=== PATIENT | female | born 1940 | race American Indian/Alaskan Native ===

== ENCOUNTER 2017-04-21 10:13 | Emergency (ER) | payer MEDICARE, OTHER ==
[2017-04-21 11:13] VITALS: BP 148/74
--- NOTE | 2017-04-21 13:00 | Emergency Department Report ---
HPI - General Chief Complaint: Dental/Oral Time Seen by Provider: 04/21/17 12:55 - HPI HPI: There is pleasant 77-year-old female presents with some bleeding. Patient wears dentures. She uses FixoDent to adhere dentures to her gums. No previous history of bleeding or bruising. She takes aspirin daily. She denies lightheadedness. She denies pain. She denies lightheadedness. She denies bruising or bleeding otherwise. Denies headache. Denies chest pain. 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 - Social History Smoking Status: Never Smoker Substance Use Type: None ED Review of Systems ROS: Stated complaint: SPITTING BLOOD Other details as noted in HPI Comment: All other systems reviewed and negative Constitutional: denies: chills, fever, malaise Respiratory: denies: orthopnea Cardiovascular: denies: palpitations Physical Exam - Physical Exam Vital Signs: Vital Signs 04/21/17 11:11 Temperature 98.3 F Pulse Rate 70 Respiratory 18 Rate Blood Pressure 148/74 O2 Sat by Pulse 98 Oximetry Physical Exam: General: Well-appearing, no acute distress HEENT: Normocephalic atraumatic pupils equal round and reactive to light anicteric sclera Nose: no rhinorrhea Oropharynx: Patient is edentulous, there is a small 3 mm ulcer at tooth area # 8 without bleeding or fluctuance Clear mucous membranes no lesions Neck: supple, no meningismus Chest: Clear to auscultation bilaterally no rales rhonchi no wheezes Cardiac: Regular rate and rhythm no murmurs no rubs no gallops Abdomen: Soft nontender nondistended positive bowel sounds no guarding Extremities: No cyanosis no clubbing no edema Neuro: Moves all extremities 4, no gross deficits Psychiatric: Alert and oriented 4 normal aspect normal judgment normal inside ED Course Vital Signs 04/21/17 11:11 Temperature 98.3 F Pulse Rate 70 Respiratory 18 Rate Blood Pressure 148/74 O2 Sat by Pulse 98 Oximetry ED Medical Decision Making - Medical Decision Making Ms. Mondragon has bleeding due to small ulcer of gum. I have asked her to hold aspirin until Monday. I also asked her to avoid wearing dentures until Monday. I do not suspect coagulopathy or thrombocytopenia. Patient is otherwise symptom -free with no previous history of bleeding or bruising. Critical care attestation.: If time is entered above; I have spent that time in minutes in the direct care of this critically ill patient, excluding procedure time. ED Disposition Clinical Impression: Gums, bleeding Disposition: TO HOME OR SELFCARE Is pt being admited?: No Does the pt Need Aspirin: No Condition: Stable Additional Instructions: Please hold aspirin until Monday. Please do not wear dentures until Monday. Time of Disposition: 13:01
== END 2017-04-21 13:11 | disposition home or self-care (01) ==
LOC: ED 10:13
DX: K06.8 Other specified disorders of gingiva and edentulous alveolar ridge (principal); I10 Essential (primary) hypertension
CPT/HCPCS: 99282